=== PATIENT | female | born 1985 | race Caucasian/White ===

== ENCOUNTER 2018-12-04 00:44 | Emergency (ER) | payer OTHER ==
[~2018-12-04] VITALS: Ht 160 cm; Wt 68.0 kg
[2018-12-04] MEDS ORDERED: LAMICTAL200 M1 (01:25)
[2018-12-04] MEDS ORDERED: KETO10TA2 PO (03:44)
== END 2018-12-04 04:03 | disposition home or self-care (01) ==
LOC: ER 00:44
DX: S00.83XA Contusion of other part of head, initial encounter (principal); W18.39XA Other fall on same level, initial encounter; Y93.89 Activity, other specified; Y92.098 Other place in other non-institutional residence as the place of occurrence of the external cause; Y99.8 Other external cause status

== ENCOUNTER → 2021-09-08 | Emergency (ER) | payer OTHER ==
[~2021-09-08] VITALS: Ht 160 cm; Wt 68.0 kg
[~2021-09-08] MED LIST: KETO10TA2 PO; LAMICTAL200 M1
== END | disposition home or self-care (01) ==
LOC: ER 14:23
DX: R10.2 Pelvic and perineal pain (principal)